=== PATIENT | male | born 1965 | race Caucasian/White ===

== ENCOUNTER 2025-05-02 08:43 | Inpatient (IN) | payer BC ==
[~2025-05-02] VITALS: Ht 180.3 cm; Wt 151.3 kg
--- NOTE | 2025-05-02 08:56 | ELECTROCARDIOGRAPH REPORT ---
[facility] Test Date: 2025-05-02 Test Time: 08:47:32 Pat Name: TERRIE VELIZ Department: EMERGENCY ROOM Room: ED 7 Gender: M [employer]: DEEP : 1965 Requested By: BURAK MELCHOR Order Number: [id number] Reading MD: Dr. Deshawn Vaughn Measurements Intervals [place] Rate: 117 P: 0 OH: 0 QRS: -18 QRSD: 100 T: 67 QT: 327 QTc: 457 Interpretive Statements Atrial fibrillation Borderline left axis deviation Anterior infarct, old Electronically Signed On 05-02-2025 18:11:[address] Deshawn Vaughn Please click the below link to view image of tracing.
[2025-05-02 09:35] LABS: MEAN PLATELET VOLUME 9.8 FL (7.4-10.4); RED CELL DISTRIBUTION WIDTH 14.9 % (11.5-14.5)
--- NOTE | 2025-05-02 09:38 | RADIOLOGY REPORT ---
EXAM: DI CHEST,SINGLE VIEW CLINICAL HISTORY: CP TECHNIQUE: Single PA view of the chest WID: COMPARISON: None FINDINGS: Lines and tubes: None Chest: The heart size and pulmonary vasculature is within normal limits. Calcified plaque projects Over the aortic arch. There is a nodular opacity in the medial right lower lung which appears increased density measuring 2.2 cm. No pneumothorax or pleural effusion. The osseous structures are grossly intact. IMPRESSION: There is a 2.2 cm medial right lower lung nodular opacity which appears increased density. DDX includes calcified granuloma or pulmonary nodule. Recommend obtaining CT chest for characterization.
[2025-05-02 09:52] VITALS: TEMP 98.4
[2025-05-02 09:56] LABS: CREATININE 1.52 MG/DL (0.60-1.10); PRO BRAIN NATRIURETIC PEPTIDE 831 PG/ML (0-125); TOTAL CARBON DIOXIDE 27.7 MMOL/L (24-32); eCRCL 56 ML/MIN; eGFR 47 ML/MIN
[2025-05-02] MEDS ORDERED: iohexol 300mg/ml 100ml inj. ONE (10:20)
[2025-05-02] MEDS ORDERED: ALLO100T PO (10:52)
[2025-05-02] MEDS ORDERED: FLEC100T PO (10:52)
[2025-05-02] MEDS ORDERED: RIVA20TA PO (10:52)
[2025-05-02] MEDS ORDERED: VALS1TAB80 PO (10:52)
[2025-05-02] MEDS ORDERED: CARV3.122 PO (10:52)
[2025-05-02] MEDS ORDERED: PANT-47 PO (10:57)
[2025-05-02] MEDS ORDERED: HYDR-3973 PO (10:57)
[2025-05-02] MEDS ORDERED: LORA-268 PO (10:57)
--- NOTE | 2025-05-02 11:25 | RADIOLOGY REPORT ---
PROCEDURE: CT CT CHEST W/ IV CONTRAST 05/02/2025 10:17 AM History: LOWER LUNG OPACITY COMPARISON: DI CHEST,SINGLE VIEW on DOS: 05/02/25 TECHNIQUE: After the uneventful administration of contrast intravenously, CT imaging was performed through the chest. Coronal and sagittal reformations were performed by the technologist. 3D image postprocessing was performed on a dedicated workstation and images were used for interpretation and reporting. Radiation Dose : CT Dose: CTDI volume is 18 mGy. Dose-length product is 661 mGy*cm CONTRAST: Type of contrast: Omnipaque 300 mm Contrast injected: 100 ml FINDINGS: Lower neck: Normal thyroid. Lungs: No focal consolidation. Heart/Vascular Structures: Mild cardiomegaly.. No pericardial effusion. Lymph Nodes: Calcified right perihilar granulomatous lymph nodes Pleura: No pleural effusion or significant pneumothorax. Musculoskeletal: No acute osseous abnormality. Soft tissues: Normal. Upper abdomen: Gallstones. Small calcifications seen in the spleen. Small hiatal hernia. Mild thickening of the distal esophageal wall circumferential in nature of unknown etiology. IMPRESSION: 1. No pulmonary infiltrates. Mild cardiomegaly. No pulmonary emboli. 2. Cholelithiasis.
[2025-05-02] MEDS: labetalol 20mg/4ml (5mg/ml) syringe IV ONE (12:24)
[2025-05-02] MEDS: furosemide 10 MG/1 ML 10ml inj IV ONE (12:24)
[2025-05-02] MEDS ORDERED: magnesium sulf-water 2g/50mL 50 ML IV PRN (13:30)
[2025-05-02] MEDS ORDERED: magnesium Cl slow-release 64mg tablet PO PRN (13:30)
[2025-05-02] MEDS ORDERED: magnesium sulf-water 4G/100mL 100 ML IV PRN (13:30)
[2025-05-02] MEDS ORDERED: potassium Cl 20 mEq SR tablet PO PRN ×2 (13:30)
[2025-05-02] MEDS ORDERED: mag hydrox/Alum hydrox/simeth 30ml oral suspension PO PRN (13:30)
[2025-05-02] MEDS ORDERED: potassium Cl 40MEQ/1/2NS 520ml 520 ML IV PRN (13:30)
[2025-05-02] MEDS ORDERED: magnesium hydroxide 30ml (MOM) UD suspension PO PRN (13:30)
--- NOTE | 2025-05-02 14:56 | HISTORY AND PHYSICAL-Residence ---
History & Physical Providers to CC Resident Creating Document: GRETCHEN MOONEY RES ~ History of Present Illness Reason for Admit\Complaint: Palpitation History of Present Illness 59 years old male with history of hypertension, atrial fibrillation, multiple ablation and cardioversion in the past last one was two years ago presented to the ED due to palpitation. Patient reported at night he woke up with palpitation and took one flecainide however due to continue symptoms he took another one and came to the ED. He denied chest pain chest tightness shortness of breaths headache light-headedness, dizziness vertigo, nausea vomiting, cough, or any leg swelling. Patient denied any changing in bowel movement or urinary habits. Patient lives in [place] and had Cardiology and primary care doctor order however due to traveling to the [place] he have not seen his doctor for about two years. However he reported he is taking medication regularly. Allergies: Coded Allergies: No Known Allergies (Unverified , 05/02/25) Home Medications Home Medications Active Reported Hydrocodone-Apap 10-325 Tablet (Acetaminophen/Hydrocodone Bitart) 10mg/325mg Tablet 1 Tab PO BID PRN 5 Days Ativan (Lorazepam) 0.5 Mg Tablet 1 Tab PO Q12H PRN PRN 30 Days PROTONIX tablet (Pantoprazole Sodium) 40 Mg Tablet.dr 1 Tab PO DAILY 30 Days Zyloprim* (Allopurinol) 100 Mg Tablet 2 Tab PO DAILY Valsartan-Hctz 320-12.5 Mg Tab (Valsartan/Hydrochlorothiazide) 320 Mg-12.5 Mg Tablet 1 Tab PO HS Xarelto (Rivaroxaban) 20 Mg Tablet 1 Tab PO DAILY Flecainide Acetate 100 Mg Tablet 1 Tab PO BID Carvedilol 3.125 Mg Tablet 1 Tab PO BID Past Medical History Past Medical History Atrial fibrillation Prediabetic Hypertension Past Surgical History Surgical History Comment Gastric bypass Hip surgery Tonsillectomy Family History Family History: FH: cancer (Father, patient does not know the type of cancer) Past Social History Smoking: Non-Smoker Alcohol Use: Rarely Drug Use: None Lives In: Home ROS ROS Constitutional: No fever, dizziness, weakness. no change in appetite/weight HEENT: No blurring of the vision, No sore throat, epistaxis, tinnitus Cardiovascular: Has a HPI Respiratory: No sob, cough,, hemoptysis Gastrointestinal: no abdominal pain, no nausea, vomiting. no diarrhea, no constipation, melena. Genitourinary: No frquency, urgency, incontinence, nocturia. No dysuria, hematuria Musculoskeletal: No arthralgia, myalgia Endocrine: No polydipsia, polyuria. No heat or cold intolerance Neurologic: No headache, vertigo. No weakness, no numbness or tingling of extremities Psychiatric: No hallucinations/delusions, no anhedonia, no suicidal ideation\ Hematologic: No bleeding or bruises Exam Vitals: Vital Signs Date Time Temp Pulse Resp B/P (MAP) Pulse Ox O2 Delivery O2 Flow Rate FiO2 05/02/25 12:23 74 05/02/25 11:03 162/97 (118) 05/02/25 10:32 96 0 05/02/25 09:52 98.4 16 General: General: Awake and Alert, no acute distress. HEENT: Conjunctiva pink, Sclera clear, Mucus Membranes moist. Neck: Supple without masses and tenderness. Resp: Lungs clear to auscultation bilaterally. Heart: Irregular rate and rhythm, normal S1 and S2 Abdomen: Soft and non tender Extremities: No cyanosis, clubbing or edema Skin: Warm and Dry. Neurological: Speech is clear, alert, and oriented x 4, no gross neurological deficits Diagnostic Data Last Recorded Lab Results: 05/02/25 0912 05/02/25 0912 Advance Care Planning Advanced Care plannin - 30 Minutes Additional Plan 59 years old male with history of AFib, multiple ablation and cardioversion, hypertension presented to the ED with palpitation Admitted with following workup and treatment AFib with RVR Vishal Vasc score 1 Hypertension emergency Troponin negative mildly elevated proBNP Chest x-ray: Chest CT scan IV contrast: 1. No pulmonary infiltrates. Mild cardiomegaly. No pulmonary emboli.Calcified right perihilar granulomatous lymph nodes 2. Cholelithiasis. EKG AFib, no ST changes Patient took flecainide this morning after he did not feel good due to palpitation In the ED heart rate 132 and blood pressure 200/120 reported, he received clonidine 0.1 mg, Lasix 40 IV, labetalol 10 mg IV and losartan 100 mg p.o., and hydrochlorothiazide 12.5 Patient is taking flecainide 100 mg b.i.d., carvedilol 3.125 and Xarelto at home When I saw patient the blood pressure was 180/105, heart rate 83 Cardiology consulted, echocardiography ordered Home medication patient was on Xarelto although the Vishal Vasc score is one Lipid panel and hemoglobin A1c, TSH, urine tox is pending, Acute on chronic kidney failure Do not have any baseline of his GFR Urine light and ultrasound of the kidney ordered, we will continue trending Code Status: full DVT prophylaxis: Analgesia/sedation: none Line/tube: peripheral GI prophylaxis: None Nutrition: Heart healthy PT: Yes Prognosis: Guarded Disposition: Gretchen Mooney MD Internal Medicine Resident Date of Service: May 02, 2025 Billing Provider: ZOIE NIETO MD, ELAHE, RES May 02, 2025 14:56
[2025-05-02 15:49] LABS: CHOL/HDL RATIO 2.9 (0.00-4.99); LDL CHOLESTEROL 93 MG/DL (50-100)
--- NOTE | 2025-05-02 16:28 | CONSULTATION REPORT ---
History of Present Illness Providers to CC CC: SHANELL MAGALLANES MD ~ Reason for Admit\Admit Dx: Cardiology consultation History of Present Illness Patient with history of atrial fibrillation presented secondary to rapid heart rate. He woke up this morning in RVR and took an extra flecainide and carvedilol. His heart rate continued to be elevated and he presented to the emergency department. States past history of atrial fibrillation with an ablation about three years ago and has had cardioversions in the past. States these usually work for certain amount of time that has been in persistent atrial fibrillation for the past year. 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 No current chest pain or pressure. No shortness a breath or dyspnea on exertion. His heart rate is controlled. He requests to go home. Allergies: Coded Allergies: No Known Allergies (Unverified , 05/02/25) Home Medications Home Medications Active Reported Hydrocodone-Apap 10-325 Tablet (Acetaminophen/Hydrocodone Bitart) 10mg/325mg Tablet 1 Tab PO BID PRN 5 Days Ativan (Lorazepam) 0.5 Mg Tablet 1 Tab PO Q12H PRN PRN 30 Days PROTONIX tablet (Pantoprazole Sodium) 40 Mg Tablet.dr 1 Tab PO DAILY 30 Days Zyloprim* (Allopurinol) 100 Mg Tablet 2 Tab PO DAILY Valsartan-Hctz 320-12.5 Mg Tab (Valsartan/Hydrochlorothiazide) 320 Mg-12.5 Mg Tablet 1 Tab PO HS Xarelto (Rivaroxaban) 20 Mg Tablet 1 Tab PO DAILY Flecainide Acetate 100 Mg Tablet 1 Tab PO BID Carvedilol 3.125 Mg Tablet 1 Tab PO BID Past Medical History Medical History Comment Atrial fibrillation Hypertension Obesity status post gastric bypass procedure Past Surgical History Surgical History Comment Atrial fibrillation ablation Gastric bypass about two years ago Past Family History Family History: FH: cancer (Father, patient does not know the type of cancer) Past Social History Social History Comment Occasional alcohol use. No smoking or recreational drugs. Physical Exam Last Vital Signs Recorded: RN Vital Signs have been reviewed: Yes, Temperature: 98.4, Source: Oral, Heart Rate: 86, Respiratory Rate: 20, BP: 174/110, Pulse Oximetry: 97, Weight: 151.300 Physical Exam General: Awake, alert, oriented. No apparent distress Neck: Supple. Normal range of motion. No JVD Respiratory: Lungs are clear to auscultation bilaterally. No respiratory distress. Chest: Normal shape and size. No accessory muscle use. Cardiovascular: Irregularly irregular. Variable S1-S2. Gastrointestinal: Abdomen is soft. Nontender to palpation. Bowel sounds present. Extremities: No lower extremity edema, cyanosis or clubbing. Neurologic: Alert and oriented x4. Nonfocal Psychiatric: Normal mood and affect. Skin: Normal color. Warm and dry. Review of Systems ROS Review of systems negative except documented in HPI. Results EKG EKG Atrial fibrillation. No QT prolongation. No acute ST changes. Diagram Lab Result Diagram: 05/02/2591105/02/25911 Assessment/Plan Additional Plan Patient presents secondary to rapid heart rate. The following is his problem list: Atrial fibrillation, with rapid ventricular response Now rate controlled --continue flecainide 100 mg b.i.d. --continue carvedilol. Recommend increase carvedilol to 6.25 mg b.i.d. --continue home Xarelto --recommend outpatient follow up for further evaluation and management and possible outpatient cardioversion. Hypertension Blood pressure uncontrolled --continue valsartan 320 mg daily --continue hydrochlorothiazide --increase carvedilol to 6.25 mg b.i.d. as noted above --consider addition of amlodipine for blood pressure control. Acute kidney injury versus chronic kidney disease --recommend continued monitoring and outpatient follow up. Case discussed with Dr. Rima Magallanes who is in agreement with this plan. Patient may follow up in the clinic. He is hesitant to stay in the hospital. It is reasonable given his stability to discharge and follow up outpatient. Supervising MD Supervising Physician: WANDA Walker NP May 02, 2025 16:28
[2025-05-02] MEDS: carvedilol 6.25mg tablet PO SCH (17:28)
[2025-05-02 18:42] VITALS: BP 174/88; PULSE 84; RESP 16; O2SAT 98
[2025-05-02 18:46] LABS: OSMOLALITY UA 377 MOSM/K (50-1400)
[2025-05-02 18:49] LABS: URINE AMPHETAMINE SCREEN NEGATIVE (Neg); URINE BARBITUATE SCREEN NEGATIVE (Neg); URINE BENZODIAZEPINES SCREEN NEGATIVE (Neg); URINE CANNABINOID SCREEN NEGATIVE (Neg); URINE COCAINE SCREEN NEGATIVE (Neg); URINE METHADONE SCREEN NEGATIVE (Neg); URINE OPIATE SCREEN NEGATIVE (Neg); URINE PHENCYCLIDINE SCREEN NEGATIVE (Neg)
--- NOTE | 2025-05-02 19:41 | DISCHARGE SUMMARY-Residence ---
Discharge Summary Providers to CC Resident Creating Document: GRETCHEN ROQUE RES ~ Discharge Summary Admission Diagnosis: Afib RVR Hospital Course DATE OF ADMISSION: 05/02/2025 DATE OF DISCHARGE: 05/02/2025 patient left [facility] Hospital course: 59 years old male with history of hypertension, atrial fibrillation, multiple ablation and cardioversion in the past last one was two years ago presented to the ED due to palpitation. Patient reported at night he woke up with palpitation and took one flecainide however due to continue sy mptoms he took another one and came to the ED. He denied chest pain chest tightness shortness of breaths headache light-headedness, dizziness vertigo, nausea vomiting, cough, or any leg swelling. Patient denied any changing in bowel movement or urinary habits. Patient lives in [place] and had Cardiology and primary care doctor order however due to traveling to the [place] he have not seen his doctor for about two years. However he reported he is taking medication regularly. Patient admitted with following workup and diagnosis AFib with RVR Vishal Vasc score 1 Hypertension emergency Troponin negative mildly elevated proBNP Chest x-ray: Chest CT scan IV contrast: 1. No pulmonary infiltrates. Mild cardiomegaly. No pulmonary emboli.Calcified right perihilar granulomatous lymph nodes 2. Cholelithiasis. EKG AFib, no ST changes Patient took flecainide this morning after he did not feel good due to palpitation In the ED heart rate 132 and blood pressure 200/120 reported, he received clonid ine 0.1 mg, Lasix 40 IV, labetalol 10 mg IV and losartan 100 mg p.o., and hydrochlorothiazide 12.5 Patient is taking flecainide 100 mg b.i.d., carvedilol 3.125 and Xarelto at home When I saw patient the blood pressure was 180/105, heart rate 83 Cardiology consulted, echocardiography ordered Home medication patient was on Xarelto although the Vishal Vasc score is one Lipid panel and hemoglobin A1c, TSH, urine tox is pending, Acute on chronic kidney failure Do not have any baseline of his GFR Urine light and ultrasound of the kidney ordered, we will continue trending Cardiology consult was done, Dr. Timmy Magallanes team saw patient and medication adjustment was done I received a call regarding patient is leaving [facility], I went to the ED talked to him regarding his condition and the consequence of leaving AMA including , he agreed to stay. After 1 hour I received a call that patient left AMA Laboratory Tests Test 05/02/25 09:12 05/02/25 10:42 05/02/25 11:46 05/02/25 13:51 White Blood Count 7.2 X10'3 Red Blood Count 4.22 X10'6 Hemoglobin 13.1 g/dl Hematocrit 39.2 % Mean Corpuscular Volume 92.8 FL Mean Corpuscular Hemoglobin 31.1 PG Mean Corpuscular Hemoglobin Concent 33.5 g/dL Red Cell Distribution Width 14.9 % Platelet Count 192 X10'3 Mean Platelet Volume 9.8 FL Neutrophils (%) (Auto) 61.6 % Lymphocytes (%) (Auto) 26.2 % Monocytes (%) (Auto) 8.5 % Eosinophils (%) (Auto) 3.0 % Basophils (%) (Auto) 0.7 % Neutrophils # (Auto) 4.5 X10'3 Lymphocytes # (Auto) 1.9 X10'3 Monocytes # (Auto) 0.6 X10'3 Eosinophils # (Auto) 0.2 X10'3 Basophils # (Auto) 0.1 X10'3 CBC Comment Sodium Level 143 MMOL/L Potassium Level 4.2 MMOL/L Chloride Level 109 MMOL/L Carbon Dioxide Level 27.7 MMOL/L Anion Gap 6 Blood Urea Nitrogen 23 MG/DL Creatinine 1.52 MG/DL Estimated GFR/1.73 m2 47 ML/MIN BUN/Creatinine Ratio 15.1 Glucose Level 141 MG/DL Hemoglobin A1c 5.2 % Calcium Level 8.3 MG/DL Aspartate Amino Transf (AST/SGOT) 17 U/L Alanine Aminotransferase (ALT/SGPT) 16 U/L Alkaline Phosphatase 101 IU/L Troponin I High Sensitivity 13 ng/L 12 ng/L 12 ng/L Pro-B-Type Natriuretic Peptide 831 PG/ML Albumin 3.3 G/DL Triglycerides Level 84 MG/DL Cholesterol Level 140 MG/DL LDL Cholesterol 93 MG/DL HDL Cholesterol 49 MG/DL Cholesterol/HDL Ratio 2.9 Thyroid Stimulating Hormone (TSH) 2.66 ulU/ml Chemistry Comments Troponin I High Sens Percent Delta 7 % 0 % Troponin I Hi Sens Absolute Change -1 ng/L 0 ng/L Lactic Acid Level 0.8 MMOL/L Test 05/02/25 18:25 Urine Osmolality 377 MOSM/K Urine Opiates Screen Negative Urine Methadone Screen Negative Urine Fentanyl Screen Negative Urine Barbiturates Screen Negative Urine Phencyclidine Screen Negative Urine Amphetamines Screen Negative Urine Benzodiazepines Screen Negative Urine Cocaine Screen Negative Urine Cannabinoids Screen Negative Drug Screen Comment Discharge Diagnosis\Comment: AFib with RVR Hypertension emergency Acute on chronic kidney failure Operations\Procedures: none Consultants: Cardiology consult Dr. Timmy Magallanes Complications: none Condition on DC: Unstable Discharge Summary: See hospital course *Problems/Diagnosis: (1) Atrial fibrillation with RVR Total Time Spent on D/C: Up to 30 Minutes Date of Service: May 02, 2025 Billing Provider: ZOIE NIETO MD, ELAHE, RES May 02, 2025 19:41
[2025-05-02] MEDS ORDERED: carvedilol 6.25mg tablet PO SCH (20:00)
[2025-05-02] MEDS ORDERED: K and/or MAG REPLACEMENT MC SCH (20:00)
[2025-05-02] MEDS ORDERED: heparin, porcine 5000 units/ml vial SQ SCH (20:00)
[2025-05-02] MEDS ORDERED: docusate sod 100mg capsule PO SCH (20:00)
--- NOTE | 2025-05-02 20:34 | Physician Documentation ---
History of Present Illness ~ Chief Complaint: Palpitations Stated Complaint: HEART PALPITATIONS Time Seen by MD: 09:46 Mode of Arrival: Ambulatory HPI AFib RVR took flecainide x2 rate controlled himself. 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 Admitted for controlled rate and Cardiology consult so he get established. Patient AMA because he can not have a certain type of sandwich. This is a 59-year-old male with past medical history of AFib with RVR coming in for palpitations. Patient states his heart rate was in the 130s at home and he took unknown dose of flecainide but states it is double his normal dose. Denies any chest pain shortness of breath weakness nausea vomiting fever chills motor or sensory deficits. States he does not have primary care or cast iron drain pipe layer here at this time. He is alert oriented x3 asymptomatic currently. Review of systems negative. Symptoms started earlier in the day getting progressively worse. Patient was rate controlled when I went into the room. Medication Reconciliation Allergies: Coded Allergies: No Known Allergies (Unverified , 05/02/25) Scheduled Allopurinol* (Zyloprim*), 2 TAB PO DAILY, (Reported) Carvedilol (Carvedilol), 1 TAB PO BID, (Reported) Flecainide Acetate (Flecainide Acetate), 1 TAB PO BID, (Reported) Pantoprazole Sodium (PROTONIX tablet), 1 TAB PO DAILY, (Reported) Rivaroxaban (Xarelto), 1 TAB PO DAILY, (Reported) Valsartan/Hydrochlorothiazide (Valsartan-Hctz 320-12.5 Mg Tab), 1 TAB PO HS, (Reported) Scheduled PRN Hydrocodone Bit/Acetaminophen (Hydrocodone-Apap 10-325 Tablet), 1 TAB PO BID PRN for pain, (Reported) Lorazepam (Ativan), 1 TAB PO Q12H PRN PRN for anxiety, (Reported) Past Medical History Patient History: FH: cancer (Father, patient does not know the type of cancer) Smoking Status: Never smoker Alcohol Use: Rarely Drug Use: none Lives In: Home Review of Systems All Other Systems at this time: Reviewed and Negative ROS Constitutional: Negative for fever and chills. HENT: Negative for sore throat and rhinorrhea. Eyes: Negative for pain and redness. Respiratory: Negative for cough and SOB. Cardiovascular: Positive for palpitations. Gastrointestinal: Negative for nausea and vomiting. . Genitourinary: Negative for dysuria and hematuria. Musculoskeletal: Negative for acute back pain and acute neck pain. Skin: Negative for rash and pruritus. Neurological: Negative for acute numbness or weakness. Physical Exam Vital Signs: Temperature: 98.4, Source: Oral, Heart Rate: 84, Respiratory Rate: 16, BP: 174/88, Pulse Oximetry: 98, Weight: 151.300 Oxygen Flow Rate: 0 Physical Exam General: Awake [] distress. Verbal Head: No trauma Eyes: Nl lids Nl conjunctiva. No eye discharge ENT: Mucous membranes Nl. Lips Nl. No lesions Neck: Supple. No JVD. No visible mass Resp: Rate normal. No respiratory distress. No retractions. Normal air flow. No wheezes, rhonchi, or rales. Heart: Regular rhythm. No murmur. No rub Abdomen: Soft. Nontender. No guarding. No rebound Musc/skeletal: No calf or popliteal tenderness. No edema Skin: No rash. No petechiae. Not diaphoretic Neuro: Alert, oriented. Normal speech Progress Results/Orders Results/Orders Orders - ESTEVAN MELCHOR MD Chest,Single View (05/02/25 08:54) Monitor (05/02/25 08:54) Saline Lock (05/02/25 08:54) Oxygen (05/02/25 08:54) Electrocardiogram (05/02/25 08:54) Ct Chest (05/02/25 ) Page Hospitalist (05/02/25 12:09) Fill Out Med Reconciliation (05/02/25 12:09) Completed Orders - ESTEVAN MELCHOR MD Chest,Single View (05/02/25 08:54) Cbc/Diff (05/02/25 08:54) BMP (05/02/25 08:54) PBNP (05/02/25 08:54) Electrocardiogram (05/02/25 08:54) Hs Troponin I W Calculations (05/02/25 08:54) Hs Troponin I W Calculations (05/02/25 10:54) Hs Troponin I W Calculations (05/02/25 11:54) Ct Chest (05/02/25 ) Iohexol 300mg/Ml 100ml Inj. (Omnipaque-3 (05/02/25 10:20) Furosemide Inj (Lasix Inj) (05/02/25 12:10) Labetalol Inj. (Trandate 20 Mg/4ml Syrin (05/02/25 12:10) Losartan Tablet (Cozaar Tablet) (05/02/25 12:20) Hydrochlorothiazide Tablet (Microzide Ca (05/02/25 12:20) TSH (05/02/25 09:12) ALP (05/02/25 09:12) ALT (05/02/25 09:12) AST (05/02/25 09:12) Hgb A1c (05/02/25 09:12) Lipid Panel (05/02/25 09:12) Vital Signs 05/02/25 05/02/25 05/02/25 05/02/25 08:50 09:23 09:52 10:32 Temp 98.7 98.4 Pulse 132 83 Resp 18 20 16 B/P (MAP) 207/124 178/122 (140) 181/121 (141) Pulse Ox 95 98 96 O2 Flow Rate 0 0 0 05/02/25 05/02/25 11:03 12:23 Pulse 74 B/P (MAP) 162/97 (118) Laboratory Tests Test 05/02/25 09:12 05/02/25 10:42 05/02/25 11:46 White Blood Count 7.2 Red Blood Count 4.22 L Hemoglobin 13.1 L Hematocrit 39.2 L Mean Corpuscular Volume 92.8 Mean Corpuscular Hemoglobin 31.1 H Mean Corpuscular Hemoglobin Concent 33.5 Red Cell Distribution Width 14.9 H Platelet Count 192 Mean Platelet Volume 9.8 Neutrophils (%) (Auto) 61.6 Lymphocytes (%) (Auto) 26.2 Monocytes (%) (Auto) 8.5 Eosinophils (%) (Auto) 3.0 Basophils (%) (Auto) 0.7 Neutrophils # (Auto) 4.5 Lymphocytes # (Auto) 1.9 Monocytes # (Auto) 0.6 Eosinophils # (Auto) 0.2 Basophils # (Auto) 0.1 CBC Comment Sodium Level 143 Potassium Level 4.2 Chloride Level 109 H Carbon Dioxide Level 27.7 Anion Gap 6 L Blood Urea Nitrogen 23 H Creatinine 1.52 H Estimated GFR/1.73 m2 47 BUN/Creatinine Ratio 15.1 Glucose Level 141 H Hemoglobin A1c 5.2 Calcium Level 8.3 L Aspartate Amino Transf (AST/SGOT) 17 Alanine Aminotransferase (ALT/SGPT) 16 Alkaline Phosphatase 101 Troponin I High Sensitivity 13 12 12 Pro-B-Type Natriuretic Peptide 831 H Albumin 3.3 L Triglycerides Level 84 Cholesterol Level 140 LDL Cholesterol 93 HDL Cholesterol 49 Cholesterol/HDL Ratio 2.9 Thyroid Stimulating Hormone (TSH) 2.66 Chemistry Comments Troponin I High Sens Percent Delta 7 0 Troponin I Hi Sens Absolute Change -1 0 EKG/XRAY/CT/US/VASC/MRI Chest X-Ray : Interpreted By: radiologist Views: 1 VIEW Additional Comments EXAM: DI CHEST,SINGLE VIEW CLINICAL HISTORY: CP TECHNIQUE: Single PA view of the chest WID: COMPARISON: None FINDINGS: Lines and tubes: None Chest: The heart size and pulmonary vasculature is within normal limits. Calcified plaque projects Over the aortic arch. There is a nodular opacity in the medial right lower lung which appears increased density measuring 2.2 cm. No pneumothorax or pleural effusion. The osseous structures are grossly intact. IMPRESSION: There is a 2.2 cm medial right lower lung nodular opacity which appears increased density. DDX includes calcified granuloma or pulmonary nodule. Recommend obtaining CT chest for characterization. Electronically Signed by:SWATI ARANGO MD Date & Time: 05/02/25935 CT : Interpreted By: radiologist CT: chest Impression PROCEDURE: CT CT CHEST W/ IV CONTRAST 05/02/2025 10:17 AM History: LOWER LUNG OPACITY COMPARISON: DI CHEST,SINGLE VIEW on DOS: 05/02/25 TECHNIQUE: After the uneventful administration of contrast intravenously, CT imaging was performed through the chest. Coronal and sagittal reformations were performed by the technologist. 3D image postprocessing was performed on a dedicated workstation and images were used for interpretation and reporting. Radiation Dose : CT Dose: CTDI volume is 18 mGy. Dose-length product is 661 mGy*cm CONTRAST: Type of contrast: Omnipaque 300 mm Contrast injected: 100 ml FINDINGS: Lower neck: Normal thyroid. Lungs: No focal consolidation. Heart/Vascular Structures: Mild cardiomegaly.. No pericardial effusion. Lymph Nodes: Calcified right perihilar granulomatous lymph nodes Pleura: No pleural effusion or significant pneumothorax. Musculoskeletal: No acute osseous abnormality. Soft tissues: Normal. Upper abdomen: Gallstones. Small calcifications seen in the spleen. Small hiatal hernia. Mild thickening of the distal esophageal wall circumferential in nature of unknown etiology. IMPRESSION: 1. No pulmonary infiltrates. Mild cardiomegaly. No pulmonary emboli. 2. Cholelithiasis. Electronically Signed by:MIQUEL BIGGS MD Date & Time: 05/02/25 1122 Medical Decision Making Additional information obtaine: N/A Findings MDM: Limited: (2 points from category 1 or one discussion with independent historian). Moderate: one of the following (3 points from category 1, or independent interpretations of tests performed by another physician/QHP: (ct,ecg,rad debbie,rhythm strip,or comparing xray to prior), or discussion of tests or management with other professionals (not including [facility] ER doc/PA or family members.) High: (2 of 3 from : category 1 (3 points), independent interpretation of tests performed by another physician/QHP, and discussion of tests or management). Prior ER notes reviewed: Category 1: Number of Tests ordered or reviewed: [] Number of Independent Historians: [] Non [facility] ER notes reviewed: 1. 2. 3. Category 2: I independently interpreted the: [] Category 3: Discussion with other professionals: [] SOC[employer]ERMIN[employer]S OF HE[employer] Problems related to: ( )Challenges with access to Primary Care or Outpatient Speciality Care ( )Psychosocial circumstances such as mental health issues ( )Social environment: such as violence or substance abuse ( )Housing and economic circumstances: such as homelessness ( )Employment and unemployment: such as recently loss of employment ( )Occupational exposures or injuries: ( )Accessing ED outside of normal PCP hours ( )Language barrier: ( )Primary support group, including family circumstances: Prescription Management: Rx strength meds given in ED: [] New Prescriptions: [] ( )I have reviewed the patient's medications and I do not recommend any changes at this time. (Applies only if checked) Comorbid conditions include but are not limited to: [] Testing or interventions considered: [] Differential includes but is not limited to: [] Differential Dx:Considerations: Include: other Differential Dx:Considerations: Include other Additional Information See MDM Departure Disposition: 07 LEFT AGAINST MEDICAL ADVICE Referrals: NO PRIMARY CARE PROVIDER (PCP) Signature Scribe Signature: No scribe Attestation: Scribed for Estevan Melchor MD by Estevan Melchor . 05/04/25 01:17 ESTEVAN MELCHOR MD May 02, 2025 20:34
[2025-05-03] MEDS ORDERED: pantoprazole 40mg Tablet.DR PO SCH (08:00)
== END 2025-05-02 18:42 | disposition left against medical advice (07) | DRG 305 ==
LOC: ER 08:45 → ED HOLD 12:31
PROVIDERS: ADMIT Family Medicine; ATTEND Family Medicine
PROC: BW241ZZ Computerized Tomography (CT Scan) of Chest and Abdomen using Low Osmolar Contrast (ICD-10-PCS; principal; 2025-05-02)
DX: I16.1 Hypertensive emergency (principal); N17.9 Acute kidney failure, unspecified; Z79.01 Long term (current) use of anticoagulants; I12.9 Hypertensive chronic kidney disease with stage 1 through stage 4 chronic kidney disease, or unspecified chronic kidney disease; N18.9 Chronic kidney disease, unspecified; I48.19 Other persistent atrial fibrillation; Z53.21 Procedure and treatment not carried out due to patient leaving prior to being seen by health care provider; K80.20 Calculus of gallbladder without cholecystitis without obstruction; Z98.84 Bariatric surgery status; Z79.899 Other long term (current) drug therapy
CPT/HCPCS: 36415; 71045; 71260; 80048; 80061; 80305; 83036; 83605; 83880; 83935; 84075; 84443; 84450; 84460; 84484; 85025; 87040; 93005; 96374; 96375; 99285; G0378; J1938; J3490; Q9967